=== PATIENT | male | born 1940 | race African-American/Black ===

== ENCOUNTER 2016-12-26 15:59 | Inpatient (IN) | payer MEDICARE, OTHER ==
[~2016-12-26] VITALS: Ht 188 cm; Wt 87.0 kg
[~2016-12-26 15:59] MED LIST: ACET-2902 PO; ASPI-891 PO; ATEN25TA PO; LOVA20 PO; METF500T4 PO
[2016-12-26 16:12] LABS: GLUCOSE,POINT OF CARE 229 MG/DL (70-110)
[2016-12-26 17:22] LABS: BASOPHILS # (AUTO) 0.07 K/uL (0.00-0.20); BASOPHILS % (AUTO) 0.8 % (0.0-2.0); EOSINOPHILS # (AUTO) 0.15 K/uL (0.00-0.70); HEMATOCRIT 36.3 % (41-53); LYMPHOCYTES # (AUTO) 2.1 K/uL (1.0-4.8); LYMPHOCYTES % (AUTO) 22.5 % (22.0-44.0); MEAN CORPUSCULAR HEMOGLOBIN 31.8 pg (26.0-34.0); MEAN CORPUSCULAR HGB CONC 33.2 G/dL (31.0-37.0); MEAN CORPUSCULAR VOLUME 96 fL (80-100); MONOCYTES # (AUTO) 0.6 K/uL (0.1-1.0); MONOCYTES % (AUTO) 6.4 % (2.0-9.0); NEUTROPHILS # (AUTO) 6.4 K/uL (1.8-7.7); NEUTROPHILS % (AUTO) 68.7 % (40.0-70.0); PLATELET COUNT (AUTO) 235 K/uL (150-450); RED BLOOD CELL COUNT(AUTO) 3.78 MIL/uL (4.50-5.90); RED CELL DISTRIBUTION WIDTH 12.9 % (11.5-14.5); WHITE BLOOD COUNT (AUTO) 9.3 K/uL (4.5-11.0)
[2016-12-26 17:30] LABS: ANION GAP 8 mmol/L (8-16); CALCIUM, TOTAL 9.1 mg/dL (8.8-10.5); CARBON DIOXIDE 25 mmol/L (22-29); CHLORIDE 102 mmol/L (98-107); CREATININE 0.96 mg/dL (0.60-1.30); GLOMERULAR FILTR. RATE CALC > 60 mL/min (>60); SODIUM SERUM 135 mmol/L (136-145); UREA NITROGEN, BLOOD 14 mg/dL (7-18)
[2016-12-26 17:32] LABS: INR 1.2 (0.9-1.1); PROTHROMBIN TIME 12.7 SEC (9.4-11.6)
[2016-12-26 17:36] LABS: ALANINE AMINOTRANSFERASE 21 U/L (12-78); ALBUMIN 3.3 g/dL (3.4-5.0); ASPARTATE AMINOTRANSFERASE 15 U/L (15-37); BILIRUBIN,TOTAL 0.2 mg/dL (0.1-1.0); CREATINE KINASE, TOTAL 62 U/L (39-308); TOTAL PROTEIN, SERUM 7.1 g/dL (6.4-8.2)
[2016-12-26 17:43] LABS: B-TYPE NATRIURETIC PEPTIDE 6 pg/mL (0-100)
[2016-12-26] MEDS ORDERED: SODIUM CHLORIDE 0.9% 1,000 ML IV ONE (18:15)
[2016-12-26] MEDS ORDERED: KETOROLAC TROMETHAMINE 30 MG/ML VIAL IVP ONE (18:15)
[2016-12-26] MEDS ORDERED: DEXTROSE 50%-WATER 25 GM/50 ML SYRINGE IVP PRN (18:45)
[2016-12-26] MEDS ORDERED: MAGNESIUM HYDROXIDE SUSPENSION 30 ML UDCUP PO PRN (18:45)
[2016-12-26] MEDS ORDERED: ALBUTEROL SULFATE 2.5 MG/0.5 ML NEB SOLUTION NEB PRN (18:45)
[2016-12-26] MEDS ORDERED: IPRATROPIUM BROMIDE 0.5 MG/2.5 ML NEB SOLUTION NEB PRN (18:45)
[2016-12-26] MEDS ORDERED: ONDANSETRON HCL 4 MG/2 ML VIAL IVP PRN (18:45)
[2016-12-26] MEDS ORDERED: ZOLPIDEM TARTRATE 5 MG TABLET PO PRN (18:45)
[2016-12-26] MEDS ORDERED: HydrALAZINE HCL 10 MG TABLET PO PRN (18:45)
[2016-12-26 18:51] LABS: APPEARANCE,URINE CLEAR (CLEAR); GLUCOSE, URINE (UA) 500 mg/dL (NEGATIVE); KETONES,URINE NEGATIVE (NEGATIVE); LEUKOCYTE ESTERASE ,URINE NEGATIVE (NEGATIVE); OCCULT BLOOD,URINE NEGATIVE (NEGATIVE); PH,URINE 5.5 (5.0-8.0); PROTEIN,URINE NEGATIVE (NEGATIVE)
[2016-12-26 18:52] LABS: ADD UA MICROSCOPIC YES
[2016-12-26 19:00] LABS: SQUAMOUS EPITHELIAL CELL,UR Few /LPF (None Seen)
[2016-12-26 19:01] LABS: RBC,URINE None Seen /HPF (0-2)
[2016-12-26 21:39] VITALS: BP 150/78
[2016-12-26] MEDS: CARVEDILOL 6.25 MG TABLET PO SCH (21:46)
[2016-12-26] MEDS: LOVASTATIN 20 MG TABLET PO SCH (21:46)
[2016-12-26 23:37] LABS: GLUCOSE COMMENT 1 Received Meds; GLUCOSE,POINT OF CARE 187 MG/DL (70-110)
[2016-12-27] MEDS ORDERED: INFLUENZA VIRUS VACCINE QVS 2017-18 (3YR+)/PF 60 MCG/0.5 ML SYRINGE IM ONE (00:15)
[2016-12-27 05:06] VITALS: BP 148/80
[2016-12-27 06:44] LABS: BASOPHILS # (AUTO) 0.04 K/uL (0.00-0.20); BASOPHILS % (AUTO) 0.4 % (0.0-2.0); EOSINOPHILS # (AUTO) 0.26 K/uL (0.00-0.70); EOSINOPHILS % (AUTO) 2.65 % (1.0-6.0); HEMATOCRIT 37.1 % (41-53); HEMOGLOBIN 12.1 g/dL (13.5-17.5); LYMPHOCYTES # (AUTO) 2.7 K/uL (1.0-4.8); LYMPHOCYTES % (AUTO) 27.9 % (22.0-44.0); MEAN CORPUSCULAR HEMOGLOBIN 31.5 pg (26.0-34.0); MEAN CORPUSCULAR HGB CONC 32.6 G/dL (31.0-37.0); MEAN CORPUSCULAR VOLUME 97 fL (80-100); MONOCYTES # (AUTO) 0.8 K/uL (0.1-1.0); MONOCYTES % (AUTO) 8.3 % (2.0-9.0); NEUTROPHILS # (AUTO) 5.9 K/uL (1.8-7.7); NEUTROPHILS % (AUTO) 60.7 % (40.0-70.0); PLATELET COUNT (AUTO) 241 K/uL (150-450); RED BLOOD CELL COUNT(AUTO) 3.84 MIL/uL (4.50-5.90); RED CELL DISTRIBUTION WIDTH 13.1 % (11.5-14.5); WHITE BLOOD COUNT (AUTO) 9.7 K/uL (4.5-11.0)
[2016-12-27 06:53] LABS: GLUCOSE,POINT OF CARE 146 MG/DL (70-110)
[2016-12-27 06:59] LABS: HEMOGLOBIN A1C 7.2 % (4.5-6.2)
[2016-12-27 07:11] VITALS: BP 147/85
[2016-12-27 07:16] LABS: ANION GAP 10 mmol/L (8-16); CALCIUM, TOTAL 9.3 mg/dL (8.8-10.5); CARBON DIOXIDE 27 mmol/L (22-29); CHLORIDE 103 mmol/L (98-107); CHOL/HDL RATIO 3.7 (4.2-7.3); CREATINE KINASE, TOTAL 74 U/L (39-308); CREATININE 0.81 mg/dL (0.60-1.30); GLOMERULAR FILTR. RATE CALC > 60 mL/min (>60); POTASSIUM 3.6 mmol/L (3.5-5.1); SODIUM SERUM 140 mmol/L (136-145); THYROID STIMULATING HORMONE 0.94 uIU/mL (0.36-3.74); UREA NITROGEN, BLOOD 15 mg/dL (7-18)
[2016-12-27] MEDS: CARVEDILOL 6.25 MG TABLET PO SCH ×2 (08:49→20:22)
[2016-12-27] MEDS: PANTOPRAZOLE SODIUM 40 MG DR TABLET PO SCH (08:50)
[2016-12-27] MEDS: MetFORMIN HCL 500 MG TABLET PO SCH ×2 (08:50→17:49)
[2016-12-27] MEDS: ASPIRIN 325 MG EC TABLET PO SCH (08:50)
[2016-12-27] MEDS: ENOXAPARIN SODIUM 40 MG/0.4 ML PF SYRINGE SQ SCH (08:55)
[2016-12-27 11:33] VITALS: BP 135/72
[2016-12-27] MEDS: INSULIN ASPART 100 UNITS/ML SQ PRN ×2 (12:01→20:27)
[2016-12-27 12:18] LABS: GLUCOSE,POINT OF CARE 201 MG/DL (70-110)
[2016-12-27 13:52] LABS: ALBUMIN 3.4 g/dL (3.4-5.0)
[2016-12-27] MEDS: MAGNESIUM OXIDE 400 MG TABLET PO PRN ×3 (14:02→21:00)
[2016-12-27 15:56] VITALS: BP 124/74
[2016-12-27 18:23] LABS: GLUCOSE,POINT OF CARE 130 MG/DL (70-110)
[2016-12-27 19:49] VITALS: BP 137/70
[2016-12-27] MEDS: LOVASTATIN 20 MG TABLET PO SCH (20:23)
[2016-12-27 22:03] LABS: GLUCOSE,POINT OF CARE 140 MG/DL (70-110)
[2016-12-27 23:31] VITALS: BP 148/76
[2016-12-28 04:00] VITALS: BP 150/90
[2016-12-28] MEDS: INSULIN ASPART 100 UNITS/ML SQ PRN ×2 (05:48→20:07)
[2016-12-28 06:35] LABS: BASOPHILS % (AUTO) 0.3 % (0.0-2.0); EOSINOPHILS % (AUTO) 2.2 % (1.0-6.0); HEMATOCRIT 40.1 % (41-53); HEMOGLOBIN 13.2 g/dL (13.5-17.5); LYMPHOCYTES # (AUTO) 2.5 K/uL (1.0-4.8); LYMPHOCYTES % (AUTO) 22.3 % (22.0-44.0); MEAN CORPUSCULAR HEMOGLOBIN 31.7 pg (26.0-34.0); MEAN CORPUSCULAR VOLUME 96 fL (80-100); MONOCYTES # (AUTO) 0.8 K/uL (0.1-1.0); MONOCYTES % (AUTO) 7.4 % (2.0-9.0); NEUTROPHILS # (AUTO) 7.8 K/uL (1.8-7.7); NEUTROPHILS % (AUTO) 67.8 % (40.0-70.0); PLATELET COUNT (AUTO) 254 K/uL (150-450); RED BLOOD CELL COUNT(AUTO) 4.18 MIL/uL (4.50-5.90); RED CELL DISTRIBUTION WIDTH 13.1 % (11.5-14.5); WHITE BLOOD COUNT (AUTO) 11.4 K/uL (4.5-11.0)
[2016-12-28 06:51] LABS: ANION GAP 8 mmol/L (8-16); CALCIUM, TOTAL 9.9 mg/dL (8.8-10.5); CARBON DIOXIDE 29 mmol/L (22-29); CHLORIDE 103 mmol/L (98-107); GLOMERULAR FILTR. RATE CALC > 60 mL/min (>60); SODIUM SERUM 140 mmol/L (136-145); UREA NITROGEN, BLOOD 15 mg/dL (7-18)
[2016-12-28 07:40] LABS: PROSTATE SPECIFIC ANTIGEN 28.97 ng/mL (0.00-4.00)
[2016-12-28 07:55] VITALS: BP 156/86
[2016-12-28] MEDS: TAMSULOSIN HCL 0.4 MG CAPSULE PO SCH (08:34)
[2016-12-28] MEDS: MetFORMIN HCL 500 MG TABLET PO SCH ×2 (08:34→17:44)
[2016-12-28] MEDS: CARVEDILOL 6.25 MG TABLET PO SCH (08:34)
[2016-12-28] MEDS: PANTOPRAZOLE SODIUM 40 MG DR TABLET PO SCH (08:34)
[2016-12-28] MEDS: ASPIRIN 325 MG EC TABLET PO SCH (08:34)
[2016-12-28] MEDS: ENOXAPARIN SODIUM 40 MG/0.4 ML PF SYRINGE SQ SCH (08:35)
[2016-12-28] MEDS ORDERED: LOPERAMIDE HCL 2 MG CAPSULE PO PRN (11:30)
[2016-12-28 11:47] VITALS: BP 117/77
[2016-12-28 15:00] VITALS: BP 112/68
[2016-12-28 15:47] LABS: GLUCOSE COMMENT 1 Received Meds; GLUCOSE,POINT OF CARE 185 MG/DL (70-110)
[2016-12-28] MEDS: MAGNESIUM OXIDE 400 MG TABLET PO PRN ×2 (17:28→22:04)
[2016-12-28] MEDS ORDERED: MAGNESIUM OXIDE 400 MG TABLET PO PRN (17:30)
[2016-12-28] MEDS ORDERED: MAGNESIUM SULFATE 4 GM/WATER 100 ML IV PRN (17:30)
[2016-12-28] MEDS ORDERED: MAGNESIUM SULFATE 2 GM in DEXTROSE 5%-WATER 50 ML IV PRN (17:30)
[2016-12-28 17:49] LABS: ALBUMIN 3.6 g/dL (3.4-5.0)
[2016-12-28 19:42] VITALS: BP 132/81
[2016-12-28] MEDS: LOVASTATIN 20 MG TABLET PO SCH (19:58)
[2016-12-28] MEDS: CARVEDILOL 12.5 MG TABLET PO SCH (19:59)
[2016-12-28 20:38] LABS: GLUCOSE COMMENT 1 Received Meds; GLUCOSE,POINT OF CARE 177 MG/DL (70-110)
[2016-12-28 20:38] LABS: GLUCOSE,POINT OF CARE 189 MG/DL (70-110)
[2016-12-28 21:17] LABS: GLUCOSE,POINT OF CARE 157 MG/DL (70-110)
[2016-12-28 23:47] VITALS: BP 144/80
[2016-12-29] MEDS: MAGNESIUM OXIDE 400 MG TABLET PO PRN ×2 (03:58→08:00)
[2016-12-29 04:39] VITALS: BP 138/89
[2016-12-29 05:44] LABS: BASOPHILS % (AUTO) 0.3 % (0.0-2.0); EOSINOPHILS % (AUTO) 2.1 % (1.0-6.0); HEMATOCRIT 37.1 % (41-53); HEMOGLOBIN 12.4 g/dL (13.5-17.5); LYMPHOCYTES # (AUTO) 2.7 K/uL (1.0-4.8); LYMPHOCYTES % (AUTO) 25.3 % (22.0-44.0); MEAN CORPUSCULAR HEMOGLOBIN 31.8 pg (26.0-34.0); MEAN CORPUSCULAR HGB CONC 33.3 G/dL (31.0-37.0); MEAN CORPUSCULAR VOLUME 96 fL (80-100); MONOCYTES # (AUTO) 0.7 K/uL (0.1-1.0); MONOCYTES % (AUTO) 6.9 % (2.0-9.0); NEUTROPHILS % (AUTO) 65.4 % (40.0-70.0); PLATELET COUNT (AUTO) 260 K/uL (150-450); RED BLOOD CELL COUNT(AUTO) 3.89 MIL/uL (4.50-5.90); RED CELL DISTRIBUTION WIDTH 12.7 % (11.5-14.5); WHITE BLOOD COUNT (AUTO) 10.8 K/uL (4.5-11.0)
[2016-12-29 06:03] LABS: ANION GAP 8 mmol/L (8-16); CALCIUM, TOTAL 9.7 mg/dL (8.8-10.5); CARBON DIOXIDE 26 mmol/L (22-29); CHLORIDE 103 mmol/L (98-107); CREATININE 0.86 mg/dL (0.60-1.30); GLOMERULAR FILTR. RATE CALC > 60 mL/min (>60); SODIUM SERUM 137 mmol/L (136-145); UREA NITROGEN, BLOOD 15 mg/dL (7-18)
[2016-12-29 07:08] LABS: GLUCOSE,POINT OF CARE 143 MG/DL (70-110)
[2016-12-29 07:32] VITALS: BP 146/82
[2016-12-29] MEDS: PANTOPRAZOLE SODIUM 40 MG DR TABLET PO SCH (07:59)
[2016-12-29] MEDS: CARVEDILOL 12.5 MG TABLET PO SCH (07:59)
[2016-12-29] MEDS: TAMSULOSIN HCL 0.4 MG CAPSULE PO SCH (07:59)
[2016-12-29] MEDS: ASPIRIN 325 MG EC TABLET PO SCH (08:00)
[2016-12-29] MEDS: MetFORMIN HCL 500 MG TABLET PO SCH (08:01)
[2016-12-29] MEDS: ENOXAPARIN SODIUM 40 MG/0.4 ML PF SYRINGE SQ SCH (08:01)
[2016-12-29 11:00] VITALS: BP 142/79
[2016-12-29 15:33] LABS: GLUCOSE,POINT OF CARE 153 MG/DL (70-110)
== END 2016-12-29 15:05 | DRG 641 ==
LOC: EMS 16:01 → 6N 18:39
PROVIDERS: ADMIT Internal Medicine Geriatric Medicine; ATTEND Internal Medicine Geriatric Medicine
PROC: 3E0234Z Introduction of Serum, Toxoid and Vaccine into Muscle, Percutaneous Approach (ICD-10-PCS; principal; 2016-12-27)
DX: R62.7 Adult failure to thrive (principal); E11.65 Type 2 diabetes mellitus with hyperglycemia; D63.8 Anemia in other chronic diseases classified elsewhere; E86.0 Dehydration; D64.9 Anemia, unspecified; E78.5 Hyperlipidemia, unspecified; G89.29 Other chronic pain; N40.0 Benign prostatic hyperplasia without lower urinary tract symptoms; E83.42 Hypomagnesemia; R97.20 Elevated prostate specific antigen [PSA]; I10 Essential (primary) hypertension; K52.9 Noninfective gastroenteritis and colitis, unspecified; Z87.891 Personal history of nicotine dependence; Z98.1 Arthrodesis status; Z23 Encounter for immunization
CPT/HCPCS: 82306; 82607; 82746; 82962; 83036; 83735; 84153; 84439; 84443; 93005; 93306; 97161; 97165; 97530; 97535; 99285; J1650

== ENCOUNTER 2017-07-22 19:32 | Inpatient (IN) | payer MEDICARE, OTHER ==
[~2017-07-22 19:32] MED LIST changes: -METF500T4 PO; +METF500T6 PO
[2017-07-22 20:39] VITALS: BP 144/81
[2017-07-22 21:03] LABS: GLUCOMETER DEV NAME(LOC) 6N 1E; GLUCOSE,POINT OF CARE 338 MG/DL (70-110)
[2017-07-22] MEDS ORDERED: DEXTROSE 50%-WATER 25 GM/50 ML SYRINGE IVP PRN (21:45)
[2017-07-22 22:08] LABS: BASOPHILS % (AUTO) 1.4 % (0.0-2.0); EOSINOPHILS % (AUTO) 2.6 % (1.0-6.0); HEMATOCRIT 40.2 % (41-53); HEMOGLOBIN 13.6 g/dL (13.5-17.5); LYMPHOCYTES # (AUTO) 2.5 K/uL (1.0-4.8); LYMPHOCYTES % (AUTO) 30.7 % (22.0-44.0); MEAN CORPUSCULAR HEMOGLOBIN 31.6 pg (26.0-34.0); MEAN CORPUSCULAR HGB CONC 33.9 G/dL (31.0-37.0); MEAN CORPUSCULAR VOLUME 93 fL (80-100); MONOCYTES # (AUTO) 0.8 K/uL (0.1-1.0); MONOCYTES % (AUTO) 9.7 % (2.0-9.0); NEUTROPHILS # (AUTO) 4.5 K/uL (1.8-7.7); NEUTROPHILS % (AUTO) 55.6 % (40.0-70.0); PLATELET COUNT (AUTO) 227 K/uL (150-450); RED BLOOD CELL COUNT(AUTO) 4.31 MIL/uL (4.50-5.90); RED CELL DISTRIBUTION WIDTH 12.8 % (11.5-14.5)
[2017-07-22 22:19] LABS: INR 1.1 (0.9-1.1); PROTHROMBIN TIME 11.9 SEC (9.4-11.6)
[2017-07-22 22:22] LABS: ALANINE AMINOTRANSFERASE 16 U/L (12-78); ALBUMIN 3.2 g/dL (3.4-5.0); ALKALINE PHOSPHATASE 90 U/L (46-116); ANION GAP 6 mmol/L (8-16); ASPARTATE AMINOTRANSFERASE 13 U/L (15-37); BILIRUBIN,TOTAL 0.3 mg/dL (0.1-1.0); CALCIUM, TOTAL 8.9 mg/dL (8.8-10.5); CARBON DIOXIDE 29 mmol/L (22-29); CHLORIDE 106 mmol/L (98-107); CREATININE 0.88 mg/dL (0.60-1.30); GLOMERULAR FILTR. RATE CALC > 60 mL/min (>60); GLUCOSE,RANDOM 206 mg/dL (70-110); POTASSIUM 3.7 mmol/L (3.5-5.1); SODIUM SERUM 141 mmol/L (136-145); TOTAL PROTEIN, SERUM 6.8 g/dL (6.4-8.2); UREA NITROGEN, BLOOD 10 mg/dL (7-18)
[2017-07-22] MEDS: INSULIN LISPRO 100 UNITS/ML SQ PRN (22:23)
[2017-07-22 23:15] VITALS: BP 139/96
[2017-07-23] MEDS ORDERED: INSULIN LISPRO 100 UNITS/ML SQ PRN (00:15)
[2017-07-23] MEDS ORDERED: GLUCAGON,HUMAN RECOMBINANT 1 MG VIAL IM PRN (00:15)
[2017-07-23 04:21] VITALS: BP 146/94
[2017-07-23 05:53] LABS: GLUCOMETER DEV NAME(LOC) 6N 1E; GLUCOSE,POINT OF CARE 139 MG/DL (70-110)
[2017-07-23 06:56] LABS: BASOPHILS % (AUTO) 0.7 % (0.0-2.0); EOSINOPHILS % (AUTO) 2.9 % (1.0-6.0); HEMOGLOBIN 13.6 g/dL (13.5-17.5); LYMPHOCYTES # (AUTO) 2.4 K/uL (1.0-4.8); LYMPHOCYTES % (AUTO) 34.8 % (22.0-44.0); MEAN CORPUSCULAR HEMOGLOBIN 32.2 pg (26.0-34.0); MEAN CORPUSCULAR VOLUME 95 fL (80-100); MONOCYTES # (AUTO) 0.6 K/uL (0.1-1.0); MONOCYTES % (AUTO) 8.2 % (2.0-9.0); NEUTROPHILS # (AUTO) 3.7 K/uL (1.8-7.7); NEUTROPHILS % (AUTO) 53.4 % (40.0-70.0); PLATELET COUNT (AUTO) 229 K/uL (150-450); RED BLOOD CELL COUNT(AUTO) 4.23 MIL/uL (4.50-5.90); RED CELL DISTRIBUTION WIDTH 13.1 % (11.5-14.5)
[2017-07-23 07:17] LABS: ANION GAP 4 mmol/L (8-16); CALCIUM, TOTAL 9.2 mg/dL (8.8-10.5); CARBON DIOXIDE 29 mmol/L (22-29); CHLORIDE 107 mmol/L (98-107); CHOL/HDL RATIO 4.7 (4.2-7.3); CHOLESTEROL 187 mg/dL (131-200); CREATININE 0.86 mg/dL (0.60-1.30); GLOMERULAR FILTR. RATE CALC > 60 mL/min (>60); GLUCOSE,RANDOM 147 mg/dL (70-110); HDL CHOLESTEROL 40 mg/dL (40-60); LDL CHOL (CALC.) 134 mg/dL (0-130); POTASSIUM 3.6 mmol/L (3.5-5.1); SODIUM SERUM 140 mmol/L (136-145); TRIGLYCERIDES 66 mg/dL (15-150); UREA NITROGEN, BLOOD 7 mg/dL (7-18)
[2017-07-23 08:33] VITALS: BP 142/90
[2017-07-23] MEDS: MetFORMIN HCL 500 MG TABLET PO SCH ×2 (08:34→17:51)
[2017-07-23] MEDS: ASPIRIN 325 MG EC TABLET PO SCH (08:34)
[2017-07-23] MEDS: ATENOLOL 25 MG TABLET PO SCH (08:34)
[2017-07-23] MEDS: ATORVASTATIN CALCIUM 20 MG TABLET PO SCH (08:34)
[2017-07-23 10:32] LABS: APPEARANCE,URINE CLEAR (CLEAR); BILIRUBIN,URINE NEGATIVE (NEGATIVE); GLUCOSE, URINE (UA) NEGATIVE (NEGATIVE); KETONES,URINE NEGATIVE (NEGATIVE); LEUKOCYTE ESTERASE ,URINE NEGATIVE (NEGATIVE); NITRATE,URINE NEGATIVE (NEGATIVE); OCCULT BLOOD,URINE NEGATIVE (NEGATIVE); PH,URINE 5.5 (5.0-8.0); PROTEIN,URINE NEGATIVE (NEGATIVE)
[2017-07-23 10:51] LABS: BACTERIA,URINE Few /HPF (None Seen); RBC,URINE 0-2 /HPF (0-2); SQUAMOUS EPITHELIAL CELL,UR Few /LPF (None Seen); WBC,URINE 0-2 /HPF (0-5)
[2017-07-23 11:53] LABS: GLUCOMETER DEV NAME(LOC) 6N 2D; GLUCOSE,POINT OF CARE 168 MG/DL (70-110)
[2017-07-23 11:58] VITALS: BP 174/99
[2017-07-23] MEDS: INSULIN LISPRO 100 UNITS/ML SQ PRN (12:16)
[2017-07-23 16:13] VITALS: BP 138/66
[2017-07-23 17:53] LABS: GLUCOMETER DEV NAME(LOC) 6N 1E; GLUCOSE,POINT OF CARE 120 MG/DL (70-110)
[2017-07-23 19:30] VITALS: BP 134/84
[2017-07-23] MEDS ORDERED: LOVASTATIN 20 MG TABLET PO SCH (21:00)
[2017-07-23 23:38] VITALS: BP 145/91
[2017-07-24 03:38] LABS: GLUCOMETER DEV NAME(LOC) 6N 2D; GLUCOSE,POINT OF CARE 126 MG/DL (70-110)
[2017-07-24 04:00] VITALS: BP 142/81
[2017-07-24] MEDS: INSULIN LISPRO 100 UNITS/ML SQ PRN ×2 (06:36→11:59)
[2017-07-24 07:08] LABS: GLUCOMETER DEV NAME(LOC) 6N 1E; GLUCOSE,POINT OF CARE 152 MG/DL (70-110)
[2017-07-24 07:33] VITALS: BP 147/78
[2017-07-24] MEDS: ATENOLOL 25 MG TABLET PO SCH (10:12)
[2017-07-24] MEDS: MetFORMIN HCL 500 MG TABLET PO SCH ×2 (10:12→18:20)
[2017-07-24] MEDS: ATORVASTATIN CALCIUM 20 MG TABLET PO SCH (10:12)
[2017-07-24] MEDS: ASPIRIN 325 MG EC TABLET PO SCH (10:12)
[2017-07-24 11:21] VITALS: BP 144/78
[2017-07-24 12:27] LABS: GLUCOMETER DEV NAME(LOC) 6N 1E; GLUCOSE,POINT OF CARE 163 MG/DL (70-110)
[2017-07-24 16:28] VITALS: BP 143/82
[2017-07-24 17:53] LABS: GLUCOMETER DEV NAME(LOC) 6N 2D; GLUCOSE,POINT OF CARE 97 MG/DL (70-110)
[2017-07-24 19:37] VITALS: BP 149/99
[2017-07-24 23:43] LABS: GLUCOMETER DEV NAME(LOC) 6N 1E; GLUCOSE,POINT OF CARE 124 MG/DL (70-110)
[2017-07-25 00:01] VITALS: BP 137/69
[2017-07-25 04:58] VITALS: BP 133/65
[2017-07-25 06:37] LABS: GLUCOMETER DEV NAME(LOC) 6N 1E; GLUCOSE,POINT OF CARE 121 MG/DL (70-110)
[2017-07-25 07:35] LABS: BASOPHILS % (AUTO) 0.8 % (0.0-2.0); EOSINOPHILS % (AUTO) 2.3 % (1.0-6.0); HEMATOCRIT 43.5 % (41-53); HEMOGLOBIN 15.2 g/dL (13.5-17.5); LYMPHOCYTES % (AUTO) 31.6 % (22.0-44.0); MEAN CORPUSCULAR HEMOGLOBIN 32.7 pg (26.0-34.0); MEAN CORPUSCULAR VOLUME 93 fL (80-100); MONOCYTES # (AUTO) 0.7 K/uL (0.1-1.0); NEUTROPHILS # (AUTO) 5.5 K/uL (1.8-7.7); NEUTROPHILS % (AUTO) 58.3 % (40.0-70.0); PLATELET COUNT (AUTO) 257 K/uL (150-450); RED BLOOD CELL COUNT(AUTO) 4.66 MIL/uL (4.50-5.90); RED CELL DISTRIBUTION WIDTH 12.9 % (11.5-14.5)
[2017-07-25 07:50] LABS: ANION GAP 10 mmol/L (8-16); CALCIUM, TOTAL 9.8 mg/dL (8.8-10.5); CARBON DIOXIDE 25 mmol/L (22-29); CHLORIDE 104 mmol/L (98-107); CREATININE 0.79 mg/dL (0.60-1.30); GLOMERULAR FILTR. RATE CALC > 60 mL/min (>60); GLUCOSE,RANDOM 157 mg/dL (70-110); POTASSIUM 4.2 mmol/L (3.5-5.1); SODIUM SERUM 139 mmol/L (136-145); UREA NITROGEN, BLOOD 10 mg/dL (7-18)
[2017-07-25 07:54] VITALS: BP 129/62
[2017-07-25] MEDS: ASPIRIN 325 MG EC TABLET PO SCH (08:31)
[2017-07-25] MEDS: ATENOLOL 25 MG TABLET PO SCH (08:31)
[2017-07-25] MEDS: MetFORMIN HCL 500 MG TABLET PO SCH (08:31)
[2017-07-25] MEDS: ATORVASTATIN CALCIUM 20 MG TABLET PO SCH (08:31)
[2017-07-25 12:26] VITALS: BP 141/90
[2017-07-25 15:47] VITALS: BP 136/68
[2017-07-25 15:57] LABS: GLUCOMETER DEV NAME(LOC) 6N 2D; GLUCOSE,POINT OF CARE 135 MG/DL (70-110)
== END 2017-07-25 17:25 | disposition home or self-care (01) | DRG 690 ==
LOC: 6N 19:32
PROVIDERS: ADMIT Internal Medicine; ATTEND Internal Medicine
DX: N39.0 Urinary tract infection, site not specified (principal); E86.0 Dehydration; E11.9 Type 2 diabetes mellitus without complications; I10 Essential (primary) hypertension; E78.00 Pure hypercholesterolemia, unspecified; R62.7 Adult failure to thrive; D64.9 Anemia, unspecified; Z79.82 Long term (current) use of aspirin; Z79.84 Long term (current) use of oral hypoglycemic drugs; Z79.899 Other long term (current) drug therapy; Z98.1 Arthrodesis status
CPT/HCPCS: 83036; 83735; 87081; 87086; 97110; 97116; 97162; 97530; 97535